=== PATIENT | female | born 1960 | race Two or more races ===

== ENCOUNTER 2024-11-01 23:40 | Emergency (ER) | payer OTHER ==
[~2024-11-01] VITALS: Ht 154.9 cm; Wt 66.1 kg
--- NOTE | 2024-11-02 00:39 | ED.PDOC ---
History of Present Illness EXP HPI Comments Pt presents to the ER due to post exposure s/p finger stick. 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 Per pt she was giving a patient Lantus after giving medication she was attempting to place safety on needle and poked lft hand middle finger. Pt reports she squeezed and cleaned finger. Chief Complaint: Post Exposure Time Seen by MD: 23:46 Primary Care Provider: yaritza Reviewed Notes: Nurses Notes, Medications, Allergies Allergies: Coded Allergies: Codeine (Verified Allergy, Severe, 11/02/24) NSAIDs (Verified Allergy, Severe, 11/02/24) Information Source: Patient Mode of Arrival: Ambulatory Past Medical History PAST MEDICAL HISTORY: Denies Surgical History: Denies all surgeries POISER BALANCE History: No Pertinent POISER BALANCE History Family History Family History: Reviewed,noncontributory to illness Social History Smoker: Non-Smoker Alcohol: Denies ETOH Use Drugs: Denies Drug Use Constitutional: denies: chills, diaphoresis, fatigue, fever, malaise, sweats, weakness, others EENTM: denies: blurred vision, double vision, ear bleeding, ear discharge, ear drainage, ear pain, ear ringing, eye pain, eye redness, hearing loss, mouth pain, mouth swelling, nasal discharge, nose bleeding, nose congestion, nose pain, photophobia, tearing, throat pain, throat swelling, voice changes, others Respiratory: denies: cough, hemoptysis, orthopnea, SOB at rest, shortness of breath, SOB with excertion, stridor, wheezing, others Cardiovascular: denies: chest pain, dizzy spells, diaphoresis, Dyspnea on exertion, edema, irregular heart beat, left arm pain, lightheadedness, palpitations, PND, syncope, others Gastrointestinal: denies: abdomen distended, abdominal pain, blood streaked bowels, constipated, diarrhea, dysphagia, difficulty swallowing, hematemesis, melena, nausea, poor appetite, poor fluid intake, rectal bleeding, rectal pain, vomiting, others Genitourinary: denies: abnormal vagina bleeding, burning, dyspareunia, dysuria, flank pain, frequency, hematuria, incontinence, pain, , vagina discharge, urgency, others Neurological: denies: dizziness, fainting, headache, left sided numbness, left sided weakness, numbness, paresthesia, pre-existing deficit, right sided numbness, right sided weakness, seizure, speech problems, tingling, tremors, weakness, others Musculoskeletal: denies: back pain, gout, joint pain, joint swelling, muscle pain, muscle stiffness, neck pain, others Integumetry: reports: wounds (Puncture wound left 3rd digit); denies: bruises, change in color, change in hair/nails, dryness, laceration, lesions, lumps, rash, others Allergic/Immunocompromised: denies: Difficulty Healing, Frequent Infections, Hives, Itching, others Hematologic/Lymphatic: denies: anemia, blood clots, easy bleeding, easy bruising, swollen glands, others Endocrine: denies: excessive hunger, excessive sweating, excessive thirst, excessive urination, flushing, intolerance to cold, intolerance to heat, unexplained weight gain, unexplained weight loss, others Psychiatric: denies: anxiety, bipolar disorder, depression, hopeless, panic disorder, schizophrenia, sleepless, suicidal, others Physical Exam General Appearance: No Apparent Distress, Normal HEENT: Pharynx Normal Neck: Full Range of Motion, Non-Tender Respiratory: Lungs Clear, No Respiratory Distress, Normal Breath Sounds Cardiovascular: No Murmur, Normal Peripheral Pulses, Regular Rate/Rhythm Breast Exam: Deferred Gastrointestinal: Non Tender, Soft Genitalia: Deferred Pelvic: Deferred Rectal: Deferred Extremities: Normal capillary refill, Normal inspection, Normal range of motion, Non-tender, No pedal edema Musculoskeletal : Apperance: Normal Neurologic: Alert, doctor podiatric medicine II-XII nml as Tested, No Motor Deficits, Normal Affect, Normal Mood, No Sensory Deficits Cerebellar Function: Normal Reflexes: Normal Skin: Dry, Normal Color, Warm, Wounds (Healed puncture wound to left 3rd digit middle phalanx no noted bleeding strength sensory motion intact cap refill less than 3 seconds) Lymphatic: No Adenopathy Was a procedure done? Was a procedure done?: No Differential Diagnosis (EXP) Differential Diagnosis: Body fluid exposure, Infect. Disease exposure, Needle stick exposure X-Ray, Labs, Meds, VS Vital Signs Date Time Temp Pulse Resp B/P (MAP) Pulse Ox O2 Delivery O2 Flow Rate FiO2 11/01/24 23:44 98.4 99 16 164/81 (108) 96 98.4 Lab Test 11/02/24 00:20 Range/Units Hepatitis B Surface Antigen Pending Hepatitis B Surface Antibody Pending Hepatitis C Antibody Pending HIV (1&2) Antibody Pending X-Ray, Labs, Meds, VS Comment Baseline labs obtained and pending. Place patient the follow up with the employee health on Monday prior to return to work. Push the call and obtain records. Advised on ER return precautions patient indicates understanding and agrees with discharge plan of care. Time of 1ST Reevaluation: 23:45 Reevaluation 1ST: Unchanged Time of 2ND Reevaluation: 00:50 Patient Education/Counseling: Diagnosis, Treatment, Prognosis, Need For Follow Up Family Education/Counseling: No Family Present Departure 1 Departure Time of Disposition: 00:50 Impression: Primary Impression: Needlestick injury accident with exposure to body fluid Disposition: 01 HOME / SELF CARE / HOMELESS Condition: Stable Discharged With: Self Critical Care Note Critical Care Time?: No Stability Stability form required: [facility] November 02, 2024 00:39
[2024-11-02 01:16] VITALS: BP 164/81; PULSE 99; RESP 16; TEMP 98.4; O2SAT 96
[2024-11-02 02:34] LABS: Hepatitis B Surface Antibody Positive (Negative); Hepatitis B Surface Antigen Negative (Negative)
== END 2024-11-02 01:25 | disposition home or self-care (01) ==
LOC: ER 23:40
DX: Z77.21 Contact with and (suspected) exposure to potentially hazardous body fluids (principal); Z88.6 Allergy status to analgesic agent; Z88.5 Allergy status to narcotic agent; Z86.2 Personal history of diseases of the blood and blood-forming organs and certain disorders involving the immune mechanism; Z79.899 Other long term (current) drug therapy; W46.0XXA Contact with hypodermic needle, initial encounter; Y93.89 Activity, other specified; Y92.89 Other specified places as the place of occurrence of the external cause; Y99.0 Civilian activity done for income or pay
CPT/HCPCS: 36415; 86703; 86706; 86803; 87340